=== PATIENT | male | born 1975 | race Caucasian/White ===

== ENCOUNTER 2016-12-24 09:14 | Emergency (ER) | payer BC ==
[2016-12-24 09:25] VITALS: BP 128/83
--- NOTE | 2016-12-24 10:08 | UC ---
Rectal Pain HPI - HPI Summary HPI Summary: 41 yo male with slight perianal discomfort x 1 week BRBPR with BMs x 1 week no f/c no wt loss no fhx of colon CA - History Of Current Complaint Chief Complaint: UCGI Stated Complaint: PERSONAL Time Seen by Provider: 12/24/16 09:28 Hx Obtained From: Patient Onset/Duration: Gradual Onset, Lasting Weeks - 1 Severity Initially: Mild Severity Currently: Mild Pain Intensity: 2 Pain Scale Used: 0-10 Numeric Location Of Pain: Anal Character: Dull, Burning Aggravating Factor(s): Bowel Movement Associated Signs And Symptoms: Positive: Rectal Bleeding - on toilet paper - Allergies/Home Medications Allergies/Adverse Reactions: Allergies Allergy/AdvReac Type Severity Reaction Status Date / Time seasonal Allergy Congestion Uncoded 12/24/16 09:24 PMH/Surg Hx/FS Hx/Imm Hx Previously Healthy: Yes - Surgical History Surgical History: Yes Surgery Procedure, Year, and Place: Appendectomy, 2003, [facility] - Family History Known Family History: Positive: Hypertension, Other - no hx colon CA Negative: Cardiac Disease, Diabetes - Social History Alcohol Use: None Substance Use Type: Marijuana Substance Use Comment - Amount & Last Used: occasional Smoking Status (MU): Former Smoker Type: Smokeless Tobacco When Did the Patient Quit Smoking/Using Tobacco: 2014 - Immunization History Most Recent Tetanus Shot: unknown Review of Systems Constitutional: Negative Skin: Negative Eyes: Negative ENT: Negative Respiratory: Negative Cardiovascular: Negative Gastrointestinal: Negative Genitourinary: Negative Motor: Negative Neurovascular: Negative Musculoskeletal: Negative Neurological: Negative Psychological: Negative All Other Systems Reviewed And Are Negative: Yes Physical Exam Triage Information Reviewed: Yes Appearance: Well-Appearing, No Pain Distress, Well-Nourished Vital Signs: Initial Vital Signs Temp 98 F 12/24/16 09:19 Pulse 52 12/24/16 09:19 Resp 14 12/24/16 09:19 BP 128/83 12/24/16 09:19 Pulse Ox 99 12/24/16 09:19 Vital Signs Reviewed: Yes Eyes: Positive: Conjunctiva Clear ENT: Positive: Hearing grossly normal. Negative: Nasal congestion, Nasal drainage, Tonsillar exudate, Trismus, Muffled/hoarse voice Neck: Positive: Supple, Nontender, No Lymphadenopathy Respiratory: Positive: Lungs clear, Normal breath sounds, No respiratory distress Cardiovascular: Positive: RRR, No Murmur Abdomen Description: Positive: Nontender, No Organomegaly, Soft, Other: - ring of 5-6 hemorrhoids circling the anus no bleeding site noted. Negative: CVA Tenderness (R), CVA Tenderness (L) Bowel Sounds: Positive: Present Musculoskeletal: Positive: ROM Intact, No Edema Neurological: Positive: Alert Psychological Exam: Normal Skin Exam: Normal Rectal Pain Course/Dx - Differential Dx/Diagnosis Provider Diagnoses: hemorrhoids. rectal bleeding Discharge - Discharge Plan Condition: Stable Disposition: HOME Prescriptions: Hydrocortisone SUPP* [Anusol HC Supp*] 25 mg [place] BID #14 supp Patient Education Materials: Hemorrhoids (ED), Rectal Bleeding (ED) Referrals: [facility] [place] [facility]IAN REFERRAL [Outside] Blaise Caceres MD [Medical Doctor] - As Soon As Possible Additional Instructions: tucks medicated pads- use after bowel movements recheck for new or worsening symptoms
== END 2016-12-24 10:14 | disposition home or self-care (01) ==
LOC: UCCORT 09:14
DX: K64.8 Other hemorrhoids (principal); Z87.891 Personal history of nicotine dependence
CPT/HCPCS: 99212; G0463

== ENCOUNTER 2017-09-09 11:45 | Emergency (ER) | payer BC ==
[2017-09-09 12:09] VITALS: BP 139/89
[2017-09-09] MEDS ORDERED: Tetracaine 0.5% OPTH.SOL 4 ML* 1 DROP BTL RIGHT EYE ONE (12:16)
[2017-09-09] MEDS ORDERED: Erythromycin OPTH OINT* APPLIC OINT BOTH EYES ONE (12:17)
--- NOTE | 2017-09-09 12:30 | UC ---
Eye Complaint HPI - HPI Summary HPI Summary: 42 yo Wm c/o right eye pain due to FB from sawing kitchen cabinet becortes moving it at home last night. Now hurts and is photophobic with clear drainage - History of Current Complaint Chief Complaint: UCEye Stated Complaint: FB IN EYE Time Seen by Provider: 09/09/17 12:06 Hx Obtained From: Patient Onset/Duration: Sudden Onset Timing: Constant Pain Intensity: 7 - Allergies/Home Medications Allergies/Adverse Reactions: Allergies Allergy/AdvReac Type Severity Reaction Status Date / Time seasonal Allergy Congestion Uncoded 09/09/17 12:05 Home Medications: Home Medications NK [No Home Medications Reported] 09/09/17 [History Confirmed 09/09/17] PMH/Surg Hx/FS Hx/Imm Hx - Additional Past Medical History Additional PMH: none Previously Healthy: Yes - Surgical History Surgical History: Yes Surgery Procedure, Year, and Place: Appendectomy, 2003, [facility] - Family History Known Family History: Positive: Hypertension, Other - no hx colon CA Negative: Cardiac Disease, Diabetes - Social History Alcohol Use: None Substance Use Type: Marijuana Substance Use Comment - Amount & Last Used: occasional Smoking Status (MU): Former Smoker Type: Smokeless Tobacco When Did the Patient Quit Smoking/Using Tobacco: 2014 - Immunization History Most Recent Tetanus Shot: unknown Review of Systems Constitutional: Negative Skin: Negative Eyes: Drainage, Eye Redness, Photophobia, Other - see HPI ENT: Negative Respiratory: Negative Cardiovascular: Negative Gastrointestinal: Negative Genitourinary: Negative Motor: Negative Neurovascular: Negative Musculoskeletal: Negative Neurological: Negative Psychological: Negative All Other Systems Reviewed And Are Negative: Yes Physical Exam Triage Information Reviewed: Yes Vital Signs: Initial Vital Signs Temp 37.1 C 09/09/17 12:06 Pulse 54 09/09/17 12:06 Resp 16 09/09/17 12:06 BP 139/89 09/09/17 12:06 Pulse Ox 99 09/09/17 12:06 Eye Exam: Normal Eyes: Positive: Conjunctiva Inflamed, Discharge, Other: - right eye exam- SEVEN small 1-2mm brown shards/spots of wood colored projectiles visualized embedded in cornea chiara-pupil and diffusely ENT Exam: Normal Dental Exam: Normal Neck exam: Normal Neck: Positive: 1 Respiratory Exam: Normal Cardiovascular Exam: Normal Abdominal Exam: Normal Musculoskeletal Exam: Normal Neurological Exam: Normal Psychological Exam: Normal Skin Exam: Normal Eye Complaint Course/Dx - Course Course Of Treatment: Applied tetracaine for pain alleviation and erythromycin ointment to prevent acute corneal infection due to FB - Differential Dx/Diagnosis Differential Diagnosis/HQI/PQRI: Foreign Body Provider Diagnoses: Foreign body in right eye Discharge - Discharge Plan Condition: Stable Disposition: HOME Patient Education Materials: Eye Foreign Body (ED) Referrals: No Primary Care Phys,NOPCP [Primary Care Provider] - Additional Instructions: GO TO [facility] RIGHT AWAY WITH INSURANCE CARD AND PHOTO ID. YOU HAVE A 1:45 APPT TODAY
== END 2017-09-09 12:26 | disposition home or self-care (01) ==
LOC: UCEAST 11:45
DX: T15.01XA Foreign body in cornea, right eye, initial encounter (principal); X58.XXXA Exposure to other specified factors, initial encounter; Y93.H3 Activity, building and construction; Y92.000 Kitchen of unspecified non-institutional (private) residence as the place of occurrence of the external cause; Z87.891 Personal history of nicotine dependence
CPT/HCPCS: 99211; A9270-GY; G0463

== ENCOUNTER 2018-06-17 08:47 | Emergency (ER) | payer BC ==
[2018-06-17 08:59] VITALS: BP 139/91
--- NOTE | 2018-06-17 09:24 | UC ---
Throat Pain/Nasal Rigoberto HPI - HPI Summary HPI Summary: Patient presents to urgent care reporting 7 days progressive sinus pressure postnasal drip. Patient states at night he wakes for the cough and sore throat. Ear fullness. No chest pain or shortness of breath. No nausea vomiting. Patient states he gets sinus infections once or twice a year. 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 Patient has not taken any [id number] medications. Patient without any other complaints. Patient's medications reviewed this visit. - History of Current Complaint Chief Complaint: UCGeneralIllness Stated Complaint: SINUS PAIN Time Seen by Provider: 06/17/18 09:10 Hx Obtained From: Patient Onset/Duration: Gradual Onset, Lasting Days - 7 Pain Intensity: 3 Pain Scale Used: 0-10 Numeric - Allergies/Home Medications Allergies/Adverse Reactions: Allergies Allergy/AdvReac Type Severity Reaction Status Date / Time No Known Allergies Allergy Verified 06/17/18 08:53 PMH/Surg Hx/FS Hx/Imm Hx Previously Healthy: Yes - Surgical History Surgical History: Yes Surgery Procedure, Year, and Place: Appendectomy, 2003, [facility] - Family History Known Family History: Positive: Hypertension, Other - no hx colon CA, Non- Contributory Negative: Cardiac Disease, Diabetes - Social History Occupation: Employed Full-time Lives: With Family Alcohol Use: None Substance Use Type: Marijuana Substance Use Comment - Amount & Last Used: occasional Smoking Status (MU): Never Smoked Tobacco Type: Smokeless Tobacco When Did the Patient Quit Smoking/Using Tobacco: 2014 - Immunization History Most Recent Tetanus Shot: unknown Review of Systems All Other Systems Reviewed And Are Negative: Yes Constitutional: Positive: Negative ENT: Positive: Nasal Discharge, Sinus Congestion, Sinus Pain/Tenderness Physical Exam - Summary Physical Exam Summary: Vital Signs Reviewed: Yes A+Ox3, no distress, congested sounding Eyes: Conjunctiva Clear, ABBEY. EOM intact and full ENT: Hearing grossly normal TM x 2 clear, turbinates inflammed and boggy, + PND , max sinuses TTP R>L mmoist, uvula midline, no exudate, no erythema Neck: Positive: Supple Respiratory: Positive: No respiratory distress, No accessory muscle use + CTA throughout no w/r Cardiovascular: RRR nl s1, s2 no m/r CBT <2 sec abd soft + BS nt/nd no guarding, no distension Musculoskeletal Exam: PERES x 4 without difficulty Strength Intact, ROM Intact Neurological: Positive: Alert, + sensation throughout Psychological: Positive: Normal Response To Family Skin: Positive: no rash, no ecchymosis Triage Information Reviewed: Yes Vital Signs: Initial Vital Signs Temp 98 F 06/17/18 08:53 Pulse 58 06/17/18 08:53 Resp 16 06/17/18 08:53 BP 139/91 06/17/18 08:53 Pulse Ox 97 06/17/18 08:53 Throat Pain/Nasal Course/Dx - Course Course Of Treatment: Patient presents with 7 days of progressive sinus congestion, postnasal drip, facial pain. Patient states he gets sinus infections once here this feels similar. Patient has not taken any over-the- counter medications. On exam vital signs are stable. Patient's exam consistent with rhinosinusitis. We'll start patient on antibiotics. Patient declined Flonase. Discussed with patient hydration. Motrin/time. Return precautions. Patient comfortable in agreement with plan. - Differential Dx/Diagnosis Provider Diagnosis: Rhinosinusitis Discharge - Sign-Out/Discharge Documenting (check all that apply): Patient Departure All imaging exams completed and their final reports reviewed: No Studies - Discharge Plan Condition: Stable Disposition: HOME Prescriptions: Amoxicillin PO (*) [Amoxicillin 875 MG (*)] 875 mg PO BID #20 tab Patient Education Materials: Rhinosinusitis (ED) Referrals: No Primary Care Phys,NOPCP [Primary Care Provider] - Additional Instructions: - Stay well hydrated. Drink plenty of non-alcoholic, non-caffinated beverages. - Alternate ibuprofen (Advil, Motrin) 600mg and Tylenol every 3 hours for pain or fever. Take with food. Do NOT take for more than 4-5 days. - These infections are spread by secretions - do NOT share eating or drinking utensils - clean items you share with other people such as cell phones, computer mouse, TV remote, computer tablets,etc. Once you have been antibiotics for 2 days, change your toothbrush and your pillowcase. - get plenty of restful sleep - humidify the air in the room where you sleep - boil water, run a hot steam shower, vaporizer, cups of water by heat register - okay to take over the counter decongestant and cough medication - contact your doctor or return with questions or concerns - Billing Disposition and Condition Condition: STABLE Disposition: Home
== END 2018-06-17 09:35 | disposition home or self-care (01) ==
LOC: UCEAST 08:47
DX: J32.9 Chronic sinusitis, unspecified (principal)
CPT/HCPCS: 99212; G0463

== ENCOUNTER 2018-12-01 08:20 | Emergency (ER) | payer BC ==
[2018-12-01 08:29] VITALS: BP 123/80
--- NOTE | 2018-12-01 08:42 | UC ---
Skin Complaint HPI - HPI Summary HPI Summary: Patient is a 43 y/o otherwise healthy male with several discrete red lesions on right leg, right axilla, and right upper eyelid after being in the [place] ago. He states he may have gotten into poison otilia as well with a pruritic mildly red rash on his left hand. He states his right-sided symptoms differ from his left hand in that they are more painful rather than pruritic, and that they did not come on immediately while in the [place]. He denies fevers, chills. He put jewelweed soap on his rashes which helped the left hand but did not offer relief of his right leg, right axilla, and right eyelid. - History of Current Complaint Chief Complaint: UCSkin Time Seen by Provider: 12/01/18 08:31 Stated Complaint: SKIN ISSUE Hx Obtained From: Patient Onset/Duration: Sudden Onset, Lasting Days Skin Exposure Onset/Duration: Days Ago Timing: Constant Onset Severity: Mild Current Severity: Mild Pain Intensity: 2 Pain Scale Used: 0-10 Numeric Location: Discrete - Pruritus left hand. Edematous red lesions right leg, right axilla, right upper eyelid. Character: Swelling, Pruritus, Pain, Redness, Raised Aggravating Factor(s): Nothing Alleviating Factor(s): OTC Creams/Salves Associated Signs & Symptoms: Negative: Nausea, Vomiting, Fever, Chills - Allergy/Home Medications Allergies/Adverse Reactions: Allergies Allergy/AdvReac Type Severity Reaction Status Date / Time No Known Allergies Allergy Verified 12/01/18 08:29 PMH/Surg Hx/FS Hx/Imm Hx Previously Healthy: Yes - Surgical History Surgical History: Yes Surgery Procedure, Year, and Place: Appendectomy, 2003, [facility] - Family History Known Family History: Positive: Hypertension, Other - no hx colon CA, Non- Contributory Negative: Cardiac Disease, Diabetes - Social History Alcohol Use: None Substance Use Type: Marijuana Substance Use Comment - Amount & Last Used: occasional Smoking Status (MU): Never Smoked Tobacco Type: Smokeless Tobacco When Did the Patient Quit Smoking/Using Tobacco: 2014 - Immunization History Most Recent Tetanus Shot: unknown Review of Systems All Other Systems Reviewed And Are Negative: Yes Constitutional: Negative: Fever, Chills Skin: Positive: Rash Gastrointestinal: Negative: Vomiting, Nausea Physical Exam Triage Information Reviewed: Yes Appearance: Well-Appearing, No Pain Distress Vital Signs: Initial Vital Signs Temp 99 F 12/01/18 08:27 Pulse 49 12/01/18 08:27 Resp 18 12/01/18 08:27 BP 123/80 12/01/18 08:27 Pulse Ox 99 12/01/18 08:27 Vital Signs Reviewed: Yes Eyes: Positive: Conjunctiva Clear, Other: - Edema, erythema of upper right eyelid. No drainage. ENT: Positive: Normal ENT inspection Neck: Positive: Supple, Nontender Respiratory: Positive: Lungs clear Cardiovascular: Positive: RRR Abdomen Description: Negative: Distended Musculoskeletal Exam: Normal Musculoskeletal: Positive: Strength Intact, ROM Intact Neurological Exam: Normal Neurological: Positive: Alert Psychological Exam: Normal Skin: Positive: Rashes - Pruritic, minimally erythematous raised rash to dorsal left hand. Raised, red welts with minimal drainage to posterior right leg, right axilla. No streaking, no warmth. Course/Dx - Course Course Of Treatment: 43 y/o male with red, raised, pruritic rash to right lower leg, right axilla, and right upper eyelid after working in the [employer], consistent with contact dermatitis to poison otilia. Discharged with prescription for prednisone as rash is on face. Also will use topical hydrocortisone for the rash and topical Bactroban was given for one lesion that may be superinfected. To f/u with PCP. 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 - Differential Diagnoses - Skin Complaint Differential Diagnoses: Poison Otilia, Other - Impetigo - Diagnoses Provider Diagnosis: Poison otilia Discharge - Sign-Out/Discharge Documenting (check all that apply): Patient Departure All imaging exams completed and their final reports reviewed: No Studies - Discharge Plan Condition: Good Disposition: HOME Prescriptions: Mupirocin 2% OINT* [Bactroban 2 % Oint*] 1 applic TOPICAL BID #1 tube predniSONE TAB* [Deltasone 20 MG TAB*] 40 mg PO DAILY #20 tab Patient Education Materials: Poison Otilia (ED) Referrals: [facility] [Outside] [facility] [place] [facility]FERRAL [Outside] Additional Instructions: Use hydrocortisone 2 areas of rash and itching and calamine lotion can be used for itching. Oral Benadryl as needed. Return with fever, worse, new symptoms or other concerns. [facility] clinic and provide prompt follow-up to you. - Billing Disposition and Condition Condition: GOOD Disposition: Home - Attestation Statements Document Initiated by [facility]: Yes Documenting Scribe: CULLEN Angela Provider For Whom [facility] is Documenting (Include Credential): Dr. Alondra Suarez Attestation: Azalea Carr PA-S, scribed for Dr. Cantu on 12/01/18 at 1040. Scribe Documentation Reviewed: Yes Provider Attestation: The documentation as recorded by the [facility], CULLEN Angela accurately reflects the service I personally performed and the decisions made by Dr. Alondra napoles Status of Scribe Document: Viewed
== END 2018-12-01 08:50 | disposition home or self-care (01) ==
LOC: UCEAST 08:20
DX: T63.791A Toxic effect of contact with other venomous plant, accidental (unintentional), initial encounter (principal); Y92.9 Unspecified place or not applicable; Z87.891 Personal history of nicotine dependence
CPT/HCPCS: 99212; G0463